=== PATIENT | male | born 1985 | race American Indian/Alaskan Native ===

== ENCOUNTER 2017-05-12 17:29 | Emergency (ER) | payer OTHER ==
[2017-05-12 23:10] VITALS: BP 133/78
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
[2017-05-13] MEDS ORDERED: FLEXERIL PO ONE (01:45)
[2017-05-13] MEDS ORDERED: MOTRIN PO ONE (01:45)
== END 2017-05-13 02:40 | disposition home or self-care (01) ==
LOC: ED 17:29
DX: S16.1XXA Strain of muscle, fascia and tendon at neck level, initial encounter (principal); V49.49XA Driver injured in collision with other motor vehicles in traffic accident, initial encounter; Y93.89 Activity, other specified; Y92.89 Other specified places as the place of occurrence of the external cause; Y99.8 Other external cause status
CPT/HCPCS: 72125